=== PATIENT | female | born 2005 | race Caucasian/White ===

== ENCOUNTER 2023-01-17 12:12 | Emergency (ER) | payer BC ==
[2023-01-17] MEDS ORDERED: Ondansetron ODT 4 MG TAB ONE (12:40)
[2023-01-17] MEDS ORDERED: Ibuprofen 200 MG TAB ONE (12:40)
== END 2023-01-17 12:49 | disposition home or self-care (01) ==
LOC: BURERS 12:12
DX: S09.90XA Unspecified injury of head, initial encounter (principal); F17.290 Nicotine dependence, other tobacco product, uncomplicated; W22.8XXA Striking against or struck by other objects, initial encounter
CPT/HCPCS: 99283; Q0162